=== PATIENT | female | born 1955 | race Hispanic/Latino ===

== ENCOUNTER 2017-08-18 20:02 | Emergency (ER) | payer BC ==
--- NOTE | 2017-08-18 21:08 | RAD ---
LEFT ELBOW: 08/18/17 Four views. HISTORY: Fall with injury to elbow. No evidence of fracture identified. No evidence of joint effusion. IMPRESSION: No acute abnormality identified. POS: [facility]
--- NOTE | 2017-08-18 21:09 | RAD ---
LEFT WRIST: 08/18/17 Three views. HISTORY: Fall with injury to wrist. Carpals appear normally aligned. No evidence of fracture identified. IMPRESSION: No evidence of acute fracture. POS: [facility]
--- NOTE | 2017-08-18 21:10 | RAD ---
LEFT KNEE: 08/18/17 Four views. HISTORY: Fall with injury to left knee with pain. Joint spaces are maintained. No evidence of fracture. No evidence of joint effusion. IMPRESSION: No acute abnormality. POS: [facility]
== END 2017-08-18 21:44 | disposition home or self-care (01) ==
LOC: ERS 20:02
DX: S60.812A Abrasion of left wrist, initial encounter (principal); S80.212A Abrasion, left knee, initial encounter; K21.9 Gastro-esophageal reflux disease without esophagitis; F32.9 Major depressive disorder, single episode, unspecified; W01.0XXA Fall on same level from slipping, tripping and stumbling without subsequent striking against object, initial encounter; Y93.02 Activity, running; Y92.009 Unspecified place in unspecified non-institutional (private) residence as the place of occurrence of the external cause

== ENCOUNTER 2017-12-22 12:14 | Outpatient (CLI) | payer BC | END 2017-12-22 12:15 | disposition home or self-care (01) | LOC: BICRAD 12:14 | PROVIDERS: ATTEND Physician Assistant | DX: M54.9 Dorsalgia, unspecified (principal); M43.16 Spondylolisthesis, lumbar region; M47.896 Other spondylosis, lumbar region; Z91.81 History of falling | CPT/HCPCS: 72070; 72100 ==

== ENCOUNTER 2018-02-02 12:12 | Outpatient (CLI) | payer BC | END 2018-02-02 12:13 | disposition home or self-care (01) | LOC: BICMAMMO 12:12 | PROVIDERS: ATTEND Family Medicine | DX: Z12.31 Encounter for screening mammogram for malignant neoplasm of breast (principal) | CPT/HCPCS: 77063; 77067 ==

== ENCOUNTER 2019-11-26 15:40 | Outpatient (CLI) | payer BC ==
--- NOTE | 2019-11-26 16:07 | MMO ---
Bilateral MAMMO Bilat Screen [facility]. CLINICAL HISTORY: Patient is 64 years old and is seen for screening. The patient has no family history of breast cancer. The patient has no personal history of cancer. VIEWS: The views performed were: bilateral craniocaudal with tomosynthesis and bilateral mediolateral oblique with tomosynthesis. FILMS COMPARED: The present examination has been compared to prior imaging studies performed at [facility] on 06/11/2013, 09/06/2014, 03/31/2016 and 02/02/2018. This study has been interpreted with the assistance of computer-aided detection. MAMMOGRAM FINDINGS: There are scattered fibroglandular densities. There are benign appearing and vascular calcifications seen in both breasts. There are no suspicious masses, suspicious calcifications, or new areas of architectural distortion. IMPRESSION: THERE IS NO MAMMOGRAPHIC EVIDENCE OF MALIGNANCY. A ROUTINE FOLLOW-UP MAMMOGRAM IN 1 YEAR IS RECOMMENDED. THE RESULTS OF THIS EXAM WERE SENT TO THE PATIENT. ACR BI-RADS Category 2 - Benign finding MAMMOGRAPHY NOTE: 1. A negative mammogram report should not delay a biopsy if a dominant of clinically suspicious mass is present. 2. Approximately 10% to 15% of breast cancers are not detected by mammography. 3. Adenosis and dense breasts may obscure an underlying neoplasm. Reported by: MILENA FINNEGAN MD Electonically Signed: [id number]
== END 2019-11-26 15:41 | disposition home or self-care (01) ==
LOC: BICMAMMO 15:40
PROVIDERS: ATTEND Family Medicine
DX: Z12.31 Encounter for screening mammogram for malignant neoplasm of breast (principal)
CPT/HCPCS: 77063; 77067